=== PATIENT | male | born 1945 | race Caucasian/White ===

== ENCOUNTER 2024-06-30 03:19 | Outpatient (CLI) | payer MEDICARE | END 2024-06-30 03:20 | disposition critical access hospital (66) | LOC: EMS 03:19 | DX: S01.81XA Laceration without foreign body of other part of head, initial encounter (principal); R04.0 Epistaxis; W19.XXXA Unspecified fall, initial encounter; Y92.092 Bedroom in other non-institutional residence as the place of occurrence of the external cause; Z79.01 Long term (current) use of anticoagulants; F03.911 Unspecified dementia, unspecified severity, with agitation | CPT/HCPCS: A0425; A0429 ==

== ENCOUNTER 2024-06-30 03:48 | Emergency (ER) | payer MEDICARE, OTHER ==
--- NOTE | 2024-06-30 03:35 | ED Physician Documentation ---
PD HPI Fall - Stated complaint Stated Complaint: GLF/COMBATIVE - History obtained from History obtained from: EMS - Additional information Additional information: HPI from EMS. Patient is agitated, combative in the field (per EMS) en route, and continues to yell loudly and continues his combative behavior with EMS and ED staff on arrival. The patient is thus unable to contribute to HPI/ROS. Per EMS, patient is coming from [facility] where he is a resident. Approximately 30-45 minutes [employer], staff heard a loud noise s/o someone falling to ground and found patient in his room on the floor with forehead laceration. Patient's medications include xarelto. Review of Systems Unable to obtain: Dementia PD PAST MEDICAL HISTORY - Past Medical History Past Medical History: Yes - Present Medications Home Medications: Ambulatory Orders Medication Instructions Recorded Confirmed Bisacodyl Supp [Dulcolax Supp] 10 mg CO DAILY PRN 06/30/24 06/30/24 LORazepam [Ativan] 0.5 mg PO BID PRN 06/30/24 06/30/24 Magnesium Hydroxide [Milk of 30 ml PO DAILY PRN 06/30/24 06/30/24 Magnesia] Melatonin 3 mg PO QPM PRN 06/30/24 06/30/24 Metoprolol Succinate [Toprol Xl] 25 mg PO DAILY 06/30/24 06/30/24 QUEtiapine [SEROquel] 25 mg PO BID 06/30/24 06/30/24 Rivaroxaban [Xarelto] 20 mg PO QPM 06/30/24 06/30/24 Tamsulosin HCl [Flomax] 1 cap PO QPM 06/30/24 06/30/24 Valacyclovir HCl [Valtrex] 500 mg PO DAILY 06/30/24 06/30/24 traZODone [Desyrel] 50 mg PO QPM 06/30/24 06/30/24 - Allergies Allergies/Adverse Reactions: Allergies Allergy/AdvReac Type Severity Reaction Status Date / Time galantamine Allergy Unknown Verified 06/30/24 03:59 hydrocodone Allergy Unknown Verified 06/30/24 03:58 quinine Allergy Unknown Verified 06/30/24 03:58 rivastigmine Allergy Unknown Verified 06/30/24 03:59 PD ED PE NORMAL - Vitals Vital signs reviewed: Yes - General General: Well developed/nourished, Other (yelling, swinging (fists) at staff at times, speech is gibberish, does not follow any commands) - HEENT HEENT: PERRL, EOMI - Neck Neck: Supple, no meningeal sign - Cardiac Cardiac: RRR - Respiratory Respiratory: No respiratory distress, Clear bilaterally - Abdomen Abdomen: Soft, Non distended PD ED PE EXPANDED - HEENT HEENT Visual: 1 - laceration (1.5cm length laceration with scant active bleeding (oozing)) Results - Vitals Vitals: Vital Signs - 24 hr 06/30/24 08:12 Temperature 36.9 C Heart Rate 62 Respiratory 16 Rate Blood Pressure 127/75 O2 Saturation 96 Oxygen O2 Source Room air - Labs Labs: Laboratory Tests 06/30/24 06/30/24 06/30/24 03:50 03:50 04:00 WBC 12.9 H RBC 4.84 Hgb 14.4 Hct 44.1 MCV 91.1 MCH 29.8 MCHC 32.7 RDW 12.8 Plt Count 203 MPV 9.5 Neut # (Auto) 9.2 H Lymph # (Auto) 2.5 Lanier # (Auto) 0.9 Eos # (Auto) 0.1 Baso # (Auto) 0.1 Absolute Nucleated RBC 0.00 Nucleated RBC % 0.0 Sodium 138 Potassium 3.5 Chloride 107 Carbon Dioxide 22 Anion Gap 9.0 BUN 19 Creatinine 1.1 Estimated GFR (MDRD) 64 L Glucose 109 H Calcium 9.7 Total Bilirubin 1.1 H AST 16 ALT 10 Alkaline Phosphatase 50 Total Protein 6.7 Albumin 4.3 Globulin 2.4 Albumin/Globulin Ratio 1.8 Lipase 52 Urine Color YELLOW Urine Clarity CLEAR Urine pH 6.0 Ur Specific Tracy 1.020 Urine Protein NEGATIVE Urine Glucose (UA) NEGATIVE Urine Ketones TRACE Urine Occult Blood SMALL H Urine Nitrite NEGATIVE Urine Bilirubin NEGATIVE Urine Urobilinogen 0.2 (NORMAL) Ur Leukocyte Esterase NEGATIVE Urine RBC 6-10 H Urine WBC 4-5 Ur Squamous Epith Cells NONE SEEN Urine Bacteria Rare Urine Mucus Few Strands Ur Microscopic Review INDICATED Urine Culture Comments NOT INDICATED - Rads (name of study) CTH Relevant Findings:: Prelim report reviewed, See rad report CT cervical spine Relevant Findings:: Prelim report reviewed, See rad report CT chest with IV contrast Relevant Findings:: Prelim report reviewed, See rad report CT A/P with IV contrast Relevant Findings:: Prelim report reviewed, See rad report Procedures - Laceration (location) Face left Length in cm: 1.5 Wound type: Linear, Into subcut fat, Clean Anesthesia: Lidocaine 2% with epi Wound preparation: Hibiclens, Irrigated copiously NS, Wound explored, To the base Skin layer closure: Nylon, Running, Size #-0 - enter number (4-0), Sutures - enter # (3 throws (running suture)) Other: Patient tolerated well, No complications, Neurovascular intact, Dressing applied PD Medical Decision Making - ED course Complexity details: reviewed results, re-evaluated patient, considered differential ED course: Patient required both chemical and physical restraints earlier in stay in order to facilitate appropriate testing which need to be undertaken on an expedited basis; the chief concern was head injury in the setting of medication list that includes Xarelto, and thus potential for intracranial hemorrhage. Fortunately, there are no concerning findings on CT head, neck, chest, abdomen/pelvis. Additionally, no concerning or diagnostic findings on CBC, ER abdominal panel. Urinalysis with small amount of blood which is an isolated finding and is likely due to the In-N-Out catheterization by ED RN. Left forehead laceration is repaired as per procedure note, above. Patient gradual became more awake and alert as the sedative (ketamine) wore off. Prior to discharge back to [facility], he was given p.o. quetiapine and lorazepam which had adequate sedating effect. Departure - Departure Disposition: 01 Home, Self Care Clinical Impression: Fall Qualifiers: Encounter type: initial encounter Qualified Code(s): W19.XXXA - Unspecified fall, initial encounter Laceration of forehead Qualifiers: Encounter type: initial encounter Qualified Code(s): S01.81XA - Laceration without foreign body of other part of head, initial encounter Condition: Good Instructions: ED Fall Uncertain Cause, ED Laceration Facial Sutr Tape Follow-Up: Michael Araujo SR, MD [Primary Care Provider] - Comments: There were no concerning findings on tonight's blood tests. CT scans of the head, neck, chest, abdomen pelvis all have aged-related findings, but no concerning/acute findings. Urinalysis was unremarkable (specifically, no evidence of infection). The laceration above the left eyebrow was repaired with a running stitch (3 throws); these will need to be removed in 7 to 10 days. Forms: PCP List Discharge Date/Time: 06/30/24 08:30 Restraint [id number] - Immediate Situation Face to Face Evaluation Date: 06/30/24 Face to Face Evaluation Time: 04:16 Restraint Classification: Violent, Physical - Locked Restraint - Patient's Reaction & Behaviors Safety: Non-compliant, Unable to Follow Commands Verbal: Screaming/Yelling Physical: Aggressive behavior, Fighting restraints Other: Attempting removal of medically necessary device(s) - Behavioral Condition Attitude: Indifferent Behavior: Uncooperative, Agitated Orientation: Non-responsive (answers are gibberish) Mood: Angry - Evaluation Pertinent History/Illicit Drugs/Medications/Results: see H+P - Plan Need to Initiate/Renew Violent or Chemical Restraint: discontinue when exhibits behaviors consistent with no longer being physical danger to self, others/staff
[2024-06-30] MEDS: LIDOCAINE 2%-EPI 1:100000 20 ML MDV SUBQ STA (04:03)
[2024-06-30] MEDS ORDERED: iohexoL-300 100 ML VIAL ONE (04:05)
[2024-06-30] MEDS: KETAMINE 500 MG/10 ML VIAL IV STA (04:07)
[2024-06-30] MEDS: KETAMINE 500 MG/10 ML VIAL IVP STA (04:09)
[2024-06-30 04:10] LABS: BASOPHILS # (AUTO) 0.1 10^3/uL (0.0-0.1); BASOPHILS % (AUTO) 0.5 %; EOSINOPHILS # (AUTO) 0.1 10^3/uL (0.0-0.7); EOSINOPHILS % (AUTO) 1.1 %; HCT - HEMATOCRIT 44.1 % (42.0-52.0); HGB - HEMOGLOBIN 14.4 g/dL (14.0-18.0); LYMPHOCYTES # (AUTO) 2.5 10^3/uL (1.5-3.5); LYMPHOCYTES % (AUTO) 19.7 %; MEAN CORPUSCULAR HEMOGLOBIN 29.8 pg (27.0-31.0); MEAN CORPUSCULAR HGB CONC 32.7 g/dL (32.0-36.0); MEAN CORPUSCULAR VOLUME 91.1 fL (80.0-94.0); MEAN PLATELET VOLUME 9.5 fL (7.4-11.4); MONOCYTES # (AUTO) 0.9 10^3/uL (0.0-1.0); MONOCYTES % (AUTO) 6.6 %; NEUTROPHILS # (AUTO) 9.2 10^3/uL (1.5-6.6); NEUTROPHILS % (AUTO) 71.6 %; PLT - PLATELET COUNT 203 10^3/uL (130-450); RED BLOOD COUNT 4.84 10^6/uL (4.70-6.10); RED CELL DISTRIBUTION WIDTH 12.8 % (12.0-15.0); WHITE BLOOD COUNT 12.9 x10^3/uL (4.8-10.8)
[2024-06-30 04:15] LABS: BILIRUBIN,URINE NEGATIVE (NEGATIVE); GLUCOSE, URINE (UA) NEGATIVE (NEGATIVE); KETONES,URINE (UA) TRACE mg/dL (NEGATIVE); LEUKOCYTE ESTERASE, URINE NEGATIVE (NEGATIVE); NITRITE,URINE NEGATIVE (NEGATIVE); OCCULT BLOOD,URINE SMALL (NEGATIVE); PROTEIN,URINE NEGATIVE (NEGATIVE); UROBILINOGEN,URINE 0.2 (NORMAL) E.U./dL (NORMAL)
--- NOTE | 2024-06-30 04:18 | ED Physician Documentation ---
Restraint [id number] - Immediate Situation Face to Face Evaluation Date: 06/30/24 Face to Face Evaluation Time: 04:18 Restraint Classification: Violent, Physical Hold, w/ Chemical - Patient's Reaction & Behaviors Safety: Non-compliant, Unable to Follow Commands Verbal: Screaming/Yelling Harm: Potential harm to self Physical: Aggressive behavior, Fighting restraints Other: Disruption of therapy, Attempting removal of medically necessary device(s) - Behavioral Condition Attitude: Indifferent Behavior: Agitated Orientation: Non-responsive (answers are gibberish) Mood: Angry - Evaluation Pertinent History/Illicit Drugs/Medications/Results: see H+P - Plan Need to Initiate/Renew Violent or Chemical Restraint: n/a (chemical restraint)
[2024-06-30 04:21] LABS: CLARITY,URINE CLEAR (CLEAR)
[2024-06-30 04:24] LABS: BACTERIA,URINE Rare /HPF (None Seen); MUCUS,URINE Few Strands; SQUAMOUS EPITHELIAL CELL,UR NONE SEEN (<= Few)
--- NOTE | 2024-06-30 04:26 | ED Physician Documentation ---
Restraint [id number] - Immediate Situation Face to Face Evaluation Date: 06/30/24 Face to Face Evaluation Time: 04:25 Restraint Classification: Violent, Physical Hold, w/ Chemical - Patient's Reaction & Behaviors Safety: Physically safe - Behavioral Condition Attitude: Other (sedated) Behavior: Withdrawn Orientation: Non-responsive (asleep/sedated) Mood: Other (asleep/sedated) - Evaluation Pertinent History/Illicit Drugs/Medications/Results: see H+P - Plan Need to Initiate/Renew Violent or Chemical Restraint: n/a (chemical restraint)
[2024-06-30 04:33] LABS: ALBUMIN 4.3 g/dL (3.2-5.5); ALBUMIN/GLOBULIN RATIO 1.8 (1.0-2.2); BILIRUBIN,TOTAL 1.1 mg/dL (0.2-1.0); CALCIUM 9.7 mg/dL (8.5-10.3); CREATININE 1.1 mg/dL (0.6-1.3); POTASSIUM 3.5 mmol/L (3.5-4.5); TOTAL PROTEIN 6.7 g/dL (6.4-8.9)
[2024-06-30] MEDS: iohexoL-300 100 ML VIAL IVP ONE (04:35)
[2024-06-30] MEDS: ONDANSETRON 4 MG/2 ML VIAL IVP STA (04:49)
[2024-06-30] MEDS: KETAMINE 500 MG/10 ML VIAL IM STA (04:51)
[2024-06-30] MEDS: LORazepam 0.5 MG TABLET PO STA (07:08)
[2024-06-30] MEDS: QUEtiapine 25 MG TABLET PO STA (07:08)
[2024-06-30 08:21] VITALS: BP 127/75; O2SAT 96
--- NOTE | 2024-06-30 09:07 | CT Report ---
PROCEDURE: Head WO INDICATIONS: unwitnessed fall, head injury (forehead lac) TECHNIQUE: Noncontrast 4.5 mm thick angled axial sections acquired from the foramen magnum to the vertex. For r adiation dose reduction, the following was used: automated exposure control, adjustment of mA and/or kV according to patient size. COMPARISON: None. FINDINGS: Image quality: Excellent. The ventricular system and cortical sulci demonstrate atrophy, consistent for patient's stated age. There are areas of hypodensity in the periventricular and subcortical white matter. There is no acut e intra or extra-axial fluid collection. No acute hemorrhage, mass lesion or midline shift. Brainst em is unremarkable. Globes are symmetrical. Sinuses are aerated. Osseous structures are intact. IMPRESSION: 1. No acute intracranial process. 2. Moderate atrophy and chronic microvascular ischemic changes. The above findings are concordant with preliminary report. Reviewed by: Shruthi Tipton MD on 06/30/2024 9:05 AM PDT Approved by: Shruthi Tipton MD on 06/30/2024 9:05 AM PDT Station ID: [id number]
--- NOTE | 2024-06-30 09:09 | CT Report ---
PROCEDURE: Cervical Spine WO INDICATIONS: unwitnessed fall TECHNIQUE: Noncontrast 3 mm thick sections acquired from the skull base to the T4 level. Sagittal and coronal r eformats were then constructed. For radiation dose reduction, the following was used: automated exp osure control, adjustment of mA and/or kV according to patient size. COMPARISON: None. FINDINGS: Image quality: Motion artifact is present limiting areas of fine detail evaluation. Bones: No fractures or dislocations. Visualized superior ribs are intact. Multilevel degenerative changes. Soft tissues: Prevertebral soft tissues are normal in thickness. No paravertebral hematomas. No ap ical pneumothoraces. IMPRESSION: No gross fracture. Motion artifact is present which does limit areas of fine detail evaluation. The above findings are concordant with preliminary report. Reviewed by: Shruthi Tipton MD on 06/30/2024 9:07 AM PDT Approved by: Shruthi Tipton MD on 06/30/2024 9:07 AM PDT Station ID: [id number]
--- NOTE | 2024-06-30 09:11 | CT Report ---
PROCEDURE: Abdomen/Pelvis W INDICATIONS: unwitnessed fall, severe dementia, on xarelto CONTRAST: 100 ML OMNI 300 TECHNIQUE: After the administration of intravenous contrast, a CT scan of the abdomen and pelvis was performed. Images were recorded and evaluated at appropriate window settings. Reformats: coronal and sagittal. F or radiation dose reduction, the following was used: automated exposure control, adjustment of mA and /or kV according to patient size. COMPARISON: None. FINDINGS: Image quality: Diagnostic. Lower chest: Heart is enlarged.. Liver: No solid mass. Gallbladder: Not visualized Biliary tree: No intrahepatic or extrahepatic dilation, accounting for age. Spleen: No splenomegaly. Pancreas: No pancreatic ductal dilation. Adrenals: No adrenal nodule. Kidneys and ureters: No hydronephrosis. No renal cystic lesion which requires follow up. No solid mas s. Simple right renal cyst. Stomach, bowel and peritoneum: No gastric or small bowel dilation. No abnormal wall thickening. No pa thologic free fluid. Colonic diverticula without inflammatory change. Lymph nodes: No central or retroperitoneal adenopathy. Vessels: No infrarenal aortic aneurysm. Patent portal vein. PELVIS Pelvic organs: Prostate gland is enlarged. Bladder: No abnormal wall thickening, accounting for underdistention. Pelvic lymph nodes: No pelvic adenopathy by size criteria. Bones: No aggressive osseous abnormality. L5 pars defect. Old left rib fractures. Other: No significant ventral or inguinal hernia. IMPRESSION: No acute intra-abdominal or pelvic process. The above findings are concordant with preliminary report. Reviewed by: Shruthi Tipton MD on 06/30/2024 9:09 AM PDT Approved by: Shruthi Tipton MD on 06/30/2024 9:09 AM PDT Station ID: [id number]
--- NOTE | 2024-06-30 09:16 | CT Report ---
PROCEDURE: Chest W INDICATIONS: unwitnessed fall, severe dementia CONTRAST: 100 ML OMNI 300 TECHNIQUE: After the administration of intravenous contrast, a CT scan of the chest was performed. Images were recorded and evaluated at appropriate window settings. Reformats: axial MIP of the chest, coronal and sagittal. For radiation dose reduction, the following was used: automated exposure control, adjustme nt of mA and/or kV according to patient size. COMPARISON: CT abdomen pelvis 06/30/2024 FINDINGS: Image quality: Diagnostic. Chest wall and lower neck: No thyroid nodule which requires sonographic follow up. No breast mass. No axillary or supraclavicular adenopathy by size. Lungs and pleura: No consolidation. No pleural effusions. No pneumothorax. 3 mm left upper and right juxtapleural nodules. No priors. Mediastinum: Heart size is mildly enlarged. No pericardial effusion. No large vessel abnormality. No mediastinal adenopathy by size criteria. Hiatal hernia. Bones: Chronic appearing left rib fractures. Tendon anchors noted overlying the left humerus. Chronic appearance of T8 and T11 compression deformities. Upper Abdomen: Please see separately dictated CT abdomen pelvis report of 06/30/2024. IMPRESSION: Appearance of chronic left rib fractures as well as T8 and T11 compression deformities. The above findings are concordant with preliminary report. Reviewed by: Shruthi Tipton MD on 06/30/2024 9:15 AM PDT Approved by: Shruthi Tipton MD on 06/30/2024 9:15 AM PDT Station ID: [id number]
== END 2024-06-30 08:30 | disposition home or self-care (01) ==
LOC: ED 03:48
DX: S01.81XA Laceration without foreign body of other part of head, initial encounter (principal); W18.30XA Fall on same level, unspecified, initial encounter; Y92.122 Bedroom in nursing home as the place of occurrence of the external cause; F03.911 Unspecified dementia, unspecified severity, with agitation; R31.29 Other microscopic hematuria; Z78.1 Physical restraint status; Z79.01 Long term (current) use of anticoagulants; Z91.199 Patient's noncompliance with other medical treatment and regimen due to unspecified reason
CPT/HCPCS: 12011; 36415; 51702; 70450; 71260; 72125; 74177; 80053; 81001; 83690; 85025; 96374; 96375; 99284; 99285; A9270; Q9967; 81003; 87086

== ENCOUNTER 2024-06-30 08:35 | Outpatient (CLI) | payer MEDICARE, OTHER | END 2024-06-30 23:59 | disposition home or self-care (01) | LOC: EMS 08:35 | PROVIDERS: ATTEND Emergency Medicine | DX: F03.911 Unspecified dementia, unspecified severity, with agitation (principal); Z91.81 History of falling; Z79.01 Long term (current) use of anticoagulants | CPT/HCPCS: A0425; A0428 ==